=== PATIENT | male | born 1935 | race Caucasian/White ===

== ENCOUNTER 2017-09-24 06:46 | Outpatient (CLI) ==
[2015-02-05 13:39] VITALS: BMI 24.9
--- NOTE | 2017-09-24 10:28 | ECHO2D ---
Date of Exam: 09/24/17 Ordering Physician: DR. LEX MARTIN Room #: OP Reason for Echo: ATRIAL FIBRILLATION, CAD M-Mode Normal Adult Results LV Dimensions Normal Adult Results AoV Opening excursions >1.6 >1.6 LVEDD-base- 3.5-5.8 4.3 Ao root dimensions 2.0-3.7 3.3 LVESD-base- 3.1-4.6 L. Atrium dimensions 1.9-3.8 5.0 Post. Wall thickness 0.8-1.1 1.2 IV septum (thickness) 0.7-1.2 1.0 Post. Wall excursion 0.72-1.3 NORMAL Septal motion NORMAL Systolic motion R. Ventricular cavity 1.5-2.0 NORMAL LVEF 60% 56% Paradoxical septal wall motion NORMAL 2-D : 2-D M Mode Echocardiogram was performed using apical four chamber and left parasternal long and short axis views. Mitral, tricuspid and aortic valves appear to be normal. Contractility of the left ventricle seems to be normal, so is the cavity size. Enlarged Left atrial cavity size. Aortic roots appear to be normal. There is no pericardial effusion. There is no thrombus noted in the left ventricular or left aortic cavity. No mitral valve prolapse noted. M-MODE: MV: NORMAL AV: NORMAL TV: NORMAL PV: CHAMBER SIZE: ENLARGED LEFT ATRIAL CAVITY WALL MOTION: NORMAL PERICARDIUM: NORMAL INTERPRETATION: 1. BORDERLINE LEFT VENTRICULAR HYPERTROPHY WITH ENLARGED LEFT ATRIAL CAVITY (5.0 ) 2. NORMAL LEFT VENTRICULAR CONTRACTILITY 3. NORMAL VALVES MTDD
== END 2017-09-24 06:47 | disposition home or self-care (01) ==
LOC: CAR 06:46
PROVIDERS: ATTEND Internal Medicine
DX: I48.91 Unspecified atrial fibrillation (principal); I25.10 Atherosclerotic heart disease of native coronary artery without angina pectoris
CPT/HCPCS: 94761

== ENCOUNTER 2020-10-05 14:02 | Inpatient (IN) ==
[2020-10-05 15:34] LABS: BORDETELLA PARAPERTUSSIS (PCR) NOT DETECTED (NOT DETECT); BORDETELLA PERTUSSIS (PCR) NOT DETECTED (NOT DETECT); CHLAMYDIA PNEUMONIAE (PCR) NOT DETECTED (NOT DETECT); CORONAVIRUS 229E (PCR) NOT DETECTED (NOT DETECT); CORONAVIRUS HKU1 (PCR) NOT DETECTED (NOT DETECT); CORONAVIRUS NL63 (PCR) NOT DETECTED (NOT DETECT); CORONAVIRUS OC43 (PCR) NOT DETECTED (NOT DETECT); HUMAN METAPNEUMOVIRUS (PCR) NOT DETECTED (NOT DETECT); INFLUENZA B (PCR) NOT DETECTED (NOT DETECT); MYCOPLASMA PNEUMONIAE (PCR) NOT DETECTED (NOT DETECT); PARAINFLUENZA VIRUS 1 (PCR) NOT DETECTED (NOT DETECT); PARAINFLUENZA VIRUS 2 (PCR) NOT DETECTED (NOT DETECT); PARAINFLUENZA VIRUS 3 (PCR) NOT DETECTED (NOT DETECT); PARAINFLUENZA VIRUS 4 (PCR) NOT DETECTED (NOT DETECT); RESPIRATORY SYNCYTIAL V (PCR) NOT DETECTED (NOT DETECT); SARS_COV_2 (PCR) NOT DETECTED (NOT DETECT)
[2020-10-05 16:24] LABS: ADENOVIRUS (PCR) NOT DETECTED (NOT DETECT); HUMAN RHINOVIRUS/ENTEROV (PCR) DETECTED (NOT DETECT)
[2020-10-05] MEDS ORDERED: NITROSTAT SL PRN (17:00)
[2020-10-05] MEDS ORDERED: TYLENOL PO PRN (17:00)
[2020-10-05] MEDS ORDERED: ATROPINE SULFATE PFS IVP PRN (17:00)
[2020-10-05] MEDS ORDERED: DECADRON IM ONE (17:06)
[2020-10-05] MEDS ORDERED: LASIX IVP ONE (17:06)
[2020-10-05 17:07] VITALS: BMI 21.7
[2020-10-05 17:23] LABS: ABG O2 HGB 87.1 % (95-100); ABG PH 7.43 (7.35-7.45); COHb 3.9 (0.5-1.5); HCO3 17.3 (21-28); TCO2 18.1 (19-24); sO2 89.1 % (94-98); tHb 12.9 g/dl (11.7-17.4)
[2020-10-05 17:41] LABS: BASOPHILS # (AUTO) 0.1 K/uL (0-0.2); BASOPHILS % (AUTO) 0.5 % (0.0-3.0); EOSINOPHILS % (AUTO) 0.1 % (0.0-7.0); HEMATOCRIT 39.7 % (42.0-52.0); HEMOGLOBIN 13.5 g/dl (14.0-18.0); IMMATURE GRANULOCYTE # (AUTO) 0.4 (0.0-1.0); IMMATURE GRANULOCYTE % (AUTO) 3.9 % (0.0-5.0); LYMPHOCYTES # (AUTO) 1.7 K/uL (0.60-3.4); MEAN CORPUSCULAR HEMOGLOBIN 29.7 pg (27.0-31.0); MEAN CORPUSCULAR VOLUME 87.4 fl (80.0-94.0); MONOCYTES # (AUTO) 0.9 K/uL (0.4-2.0); MONOCYTES % (AUTO) 7.8 (0-10); NEUTROPHILS % (AUTO) 72.7 % (42.2-75.2); PLATELET COUNT 302 10^3/uL (140-440); RDW COEFFICIENT OF VARIATION 17.2 % (11.6-14.8); RED BLOOD COUNT 4.54 10^6/ul (4.70-6.10); WHITE BLOOD COUNT 10.99 K/ul (4.2-10.2)
[2020-10-05 17:52] LABS: ALANINE AMINOTRANSFERASE 12.3 U/L (0-50); ALBUMIN 3.21 g/dL (3.5-5.0); ALKALINE PHOSPHATASE 137.4 U/L (56-119); ASPARTATE AMINO TRANSFERASE 75.5 U/L (17-59); BILIRUBIN,TOTAL 0.7 mg/dL (0.2-1.3); BLOOD UREA NITROGEN 41.5 mg/dL (9-20); CALCIUM 9.27 mg/dL (8.4-10.2); CARBON DIOXIDE 21.7 mmol/L (22-30.0); CHLORIDE 98.3 mmol/L (98-107); CREATINE KINASE 149.4 U/L (55-170); CREATININE 2.27 mg/dL (0.60-1.10); GLUCOSE 128.3 mg/dL (74-106); POTASSIUM 4.06 mmol/L (3.5-5.1); SODIUM 135.4 mmol/L (134.5-145); TOTAL PROTEIN 6.27 g/dL (6.3-8.2)
[2020-10-05] MEDS ORDERED: DECADRON IVP ONE (17:54)
[2020-10-05 18:03] LABS: TROPONIN I 0.028 ng/ml (0.0000-0.120)
[2020-10-05 18:07] LABS: CREATINE KINASE MB 2.53 ng/ml (0.0-2.38)
[2020-10-05] MEDS: ROCEPHIN 1 GM/50 ML D5W 1 GM/50 ML BAG IV SCH (18:18)
[2020-10-05 18:19] LABS: BILIRUBIN,URINE 3+ (NEGATIVE); CLARITY,URINE Cloudy (CLEAR); COLOR,URINE Yellow (YELLOW); GLUCOSE, URINE (UA) Negative (NEGATIVE); KETONES,URINE Trace (NEGATIVE); LEUKOCYTE ESTERASE ,URINE Negative (NEGATIVE); NITRITE,URINE Negative (NEGATIVE); PROTEIN,URINE Negative (NEGATIVE); URINE, BLOOD Trace-intact (NEGATIVE)
[2020-10-05 18:24] LABS: MUCUS,URINE TRACE (NOT PRESENT); URINE WBC, MICROSCOPIC 0-2 (0-2)
[2020-10-05] MEDS ORDERED: NITRO DUR TD PRN (18:34)
--- NOTE | 2020-10-05 18:35 | DI ---
EXAM: AP single view of the chest. HISTORY: Shortness of breath. Cough. FINDINGS: The bones are unremarkable. The cardiac silhouette is incompletely visualized. The pulmon mahendra vasculature is within normal limits. The left costophrenic angle is clear. There is a mild to m oderate right pleural effusion. There is right basilar consolidation. Impression: Right basilar consolidation consistent with atelectasis and/or pneumonia. Mild to moderate right pleural effusion.
[2020-10-05] MEDS ORDERED: MORPHINE 2 MG/ML SYRINGE IVP STA (19:22)
[2020-10-05] MEDS: DUONEB NEB SCH ×2 (19:30→20:00)
[2020-10-05] MEDS: SOLU-CORTEF 250 MG IVP SCH ×2 (19:42→20:53)
[2020-10-05] MEDS: PRILOSEC PO SCH (20:22)
[2020-10-05] MEDS: ELIQUIS PO SCH (20:22)
[2020-10-06 01:22] LABS: ALANINE AMINOTRANSFERASE 9.9 U/L (0-50); ALBUMIN 2.99 g/dL (3.5-5.0); ALKALINE PHOSPHATASE 125.1 U/L (56-119); ASPARTATE AMINO TRANSFERASE 73.9 U/L (17-59); BILIRUBIN,TOTAL 0.52 mg/dL (0.2-1.3); BLOOD UREA NITROGEN 45.2 mg/dL (9-20); CALCIUM 9.1 mg/dL (8.4-10.2); CARBON DIOXIDE 20.7 mmol/L (22-30.0); CHLORIDE 97.1 mmol/L (98-107); CREATININE 2.44 mg/dL (0.60-1.10); GLUCOSE 145.7 mg/dL (74-106); POTASSIUM 4.23 mmol/L (3.5-5.1); TOTAL PROTEIN 5.74 g/dL (6.3-8.2)
[2020-10-06 01:33] LABS: TROPONIN I 0.041 ng/ml (0.0000-0.120)
[2020-10-06 01:34] LABS: HEMATOCRIT 36.9 % (42.0-52.0); HEMOGLOBIN 12.3 g/dl (14.0-18.0); MEAN CORPUSCULAR HEMOGLOBIN 29.3 pg (27.0-31.0); MEAN CORPUSCULAR HGB CONC 33.3 (31.8-35.4); MEAN CORPUSCULAR VOLUME 87.9 fl (80.0-94.0); RDW COEFFICIENT OF VARIATION 17.3 % (11.6-14.8); RED BLOOD COUNT 4.2 10^6/ul (4.70-6.10); WHITE BLOOD COUNT 10.84 K/ul (4.2-10.2)
[2020-10-06 01:39] LABS: CREATINE KINASE MB 2.52 ng/ml (0.0-2.38)
[2020-10-06] MEDS: DUONEB NEB SCH ×4 (04:35→19:25)
[2020-10-06] MEDS: PRILOSEC PO SCH ×2 (05:44→17:15)
[2020-10-06] MEDS: SOLU-CORTEF 250 MG IVP SCH ×4 (06:03→20:48)
[2020-10-06] MEDS ORDERED: LASIX IVP ONE (06:30)
[2020-10-06] MEDS: ROCEPHIN 1 GM/50 ML D5W 1 GM/50 ML BAG IV SCH (08:54)
[2020-10-06] MEDS: ZESTRIL PO SCH (08:54)
[2020-10-06] MEDS: CARDIZEM CD PO SCH (08:54)
[2020-10-06] MEDS: K-DUR PO SCH (08:54)
[2020-10-06] MEDS: CRESTOR PO SCH (08:54)
[2020-10-06] MEDS: DEXTROSE 5%-1/2NS IV SOLUTION 1,000 ML IV SCH (09:49)
[2020-10-06] MEDS: ELIQUIS PO SCH ×3 (09:51→20:32)
[2020-10-06] MEDS: CALMOSEPTINE OINTMENT TP SCH ×2 (12:31→20:30)
[2020-10-06] MEDS ORDERED: LANOXIN IVP ONE ×2 (12:56→17:00)
[2020-10-06] MEDS: MORPHINE 2 MG/ML SYRINGE IVP PRN (22:30)
[2020-10-07] MEDS: DUONEB NEB SCH ×4 (04:50→22:08)
[2020-10-07 04:56] LABS: HEMATOCRIT 36.3 % (42.0-52.0); MEAN CORPUSCULAR HEMOGLOBIN 29.1 pg (27.0-31.0); MEAN CORPUSCULAR HGB CONC 33.1 (31.8-35.4); MEAN CORPUSCULAR VOLUME 87.9 fl (80.0-94.0); RDW COEFFICIENT OF VARIATION 17.2 % (11.6-14.8); RED BLOOD COUNT 4.13 10^6/ul (4.70-6.10); WHITE BLOOD COUNT 14.49 K/ul (4.2-10.2)
[2020-10-07] MEDS: SOLU-CORTEF 250 MG IVP SCH ×3 (05:03→20:44)
[2020-10-07 05:09] LABS: ALANINE AMINOTRANSFERASE 9.7 U/L (0-50); ALBUMIN 2.88 g/dL (3.5-5.0); ALKALINE PHOSPHATASE 128.5 U/L (56-119); ASPARTATE AMINO TRANSFERASE 54.7 U/L (17-59); BILIRUBIN,TOTAL 0.35 mg/dL (0.2-1.3); BLOOD UREA NITROGEN 56.6 mg/dL (9-20); CALCIUM 8.77 mg/dL (8.4-10.2); CARBON DIOXIDE 26.4 mmol/L (22-30.0); CHLORIDE 100.1 mmol/L (98-107); CREATININE 2.19 mg/dL (0.60-1.10); GLUCOSE 193.5 mg/dL (74-106); POTASSIUM 4.25 mmol/L (3.5-5.1); SODIUM 133.6 mmol/L (134.5-145); TOTAL PROTEIN 5.63 g/dL (6.3-8.2)
[2020-10-07] MEDS: LASIX TAB PO SCH (05:50)
[2020-10-07] MEDS: PRILOSEC PO SCH ×2 (05:50→17:24)
[2020-10-07] MEDS: ZESTRIL PO SCH (09:09)
[2020-10-07] MEDS: ZITHROMAX PO SCH (09:09)
[2020-10-07] MEDS: CRESTOR PO SCH (09:09)
[2020-10-07] MEDS: CALMOSEPTINE OINTMENT TP SCH ×2 (09:09→20:16)
[2020-10-07] MEDS: CARDIZEM CD PO SCH (09:09)
[2020-10-07] MEDS: K-DUR PO SCH (09:09)
[2020-10-07] MEDS: ROCEPHIN 1 GM/50 ML D5W 1 GM/50 ML BAG IV SCH (09:10)
[2020-10-07] MEDS: ELIQUIS PO SCH ×2 (09:10→20:14)
--- NOTE | 2020-10-07 09:12 | PCM.PROG ---
Attending Provider: ATTENDING PROVIDER: Dr. LEX MARTIN This patient is seen with Rehana Garcia, Nurse Practitioner. DATE OF SERVICE: 10/07/20 SUBJECTIVE: This 85 year old /WHITE M was hospitalized 10/05/20. The patient is resting comfortably in bed. Not much urinary output. He is still very short of breath and coughing with thick sputum. Abdomen slightly distended, not complaining of pain. He is not eating much. REVIEW OF SYSTEMS: CONSTITUTIONAL: Weakness. No night sweats. No fatigue, malaise, lethargy. No fever or chills. HEENT: Eyes: No visual changes. No eye pain. No eye discharge. ENT: No runny nose. No epistaxis. No sinus pain. No odynophagia. No congestion. RESPIRATORY: Cough. No hemoptysis. Shortness of breath. CARDIOVASCULAR: No angina symptoms. No CHF symptoms. No atypical chest pain for CAD. No palpitations. No orthopnea.. GASTROINTESTINAL: Poor appetite. No abdominal pain. No nausea or vomiting. No diarrhea or constipation. No hematemesis. No hematochezia. GENITOURINARY: No urgency. No frequency. No dysuria. No hematuria. No obstructive symptoms. No discharge. No pain. No significant abnormal bleeding. MUSCULOSKELETAL: No musculoskeletal pain; no joint swelling. NEUROLOGICAL: Awake, alert, oriented to time, place and person. No headache. No neck pain. No syncope. No seizures. No dizziness. PSYCHIATRIC: Not anxious. No depression. No suicidal thoughts. No homicidal thoughts. SKIN: No rash. No lesions. No wounds. ENDOCRINE: No unexplained weight loss. No weight gain. HEMATOLOGIC/LYMPHATIC: No anemia. No purpura. No petechiae. No prolonged or excessive bleeding. No palpable lymph nodes. PHYSICAL EXAMINATION: GENERAL: The patient is awake, alert and oriented, lying/sitting in bed in no distress. VITAL SIGNS: Temperature 97.0 F, Pulse 88, Respiratory Rate 18, BP 104/61, Pulse Ox 91% HEENT: Head normocephalic, atraumatic. Eyes: Extraocular muscles are intact. Pupils are equal, round and reactive to light and accommodation. Ears: No lesions. Nose appeared normal. Throat: No exudate or erythema. NECK: Supple. No JVD, no carotid bruit. No lymphadenopathy or thyromegaly. LUNGS: Diminished breath sounds. Clear to auscultation. Percussion note normal. Chest symmetrical. HEART: S1, S2, no S3. No murmurs. No cyanosis or clubbing. No ascites. Pulses: Dorsalis pedis and posterior tibial pulses +1 to +2 both sides. ABDOMEN: Soft. Non-tender. Bowel sounds active. Slight abdominal tenderness. No CVA tenderness. No mass felt. EXTREMITIES: No edema. Full range of motion of all extremities, equal. NEUROLOGIC: No focal deficit. Cranial nerves II through XII are grossly intact. No headache. No double vision. SKIN: Not dry. Intact. Turgor-normal. LYMPHATIC: No palpable lymph nodes/no lymphedema. MUSCULOSKELETAL: Normal joints with no swelling. Muscle tone is normal. LAB REVIEW: 10/07/20 04:45 10/07/20 04:45 10/07/20 04:45: Sodium 133.6 L, Potassium 4.25, Chloride 100.1, Carbon Dioxide 26.4, Anion Gap 11.35, BUN 56.6 H, Creatinine 2.19 H, Estimated GFR (MDRD) 29.00, BUN/Creatinine Ratio 25.84, Glucose 193.5 H, Calcium 8.77, Total Bilirubin 0.35, AST 54.7, ALT 9.7, Alkaline Phosphatase 128.5 H, Total Protein 5.63 L, Albumin 2.88 L, Globulin 2.75, Albumin/Globulin Ratio 1.04 10/07/20 04:45: WBC 14.49 H, RBC 4.13 L, Hgb 12.0 L, Hct 36.3 L, MCV 87.9, MCH 29.1, MCHC 33.1, RDW Coeff of [place] 17.2 H, Plt Count 268 ASSESSMENT: Please see below. 1. Right basilar pneumonia. 2. CHF. 3. Renal azotemia. 4. Underlying COPD. PLAN: 1. CT scan of abdomen without contrast. 2. CT scan of chest without contrast. 3. Zithromax 500 mg p.o. daily for three days. 4. Pulmicort 1 mg nebulizer b.i.d. Plan and coordination of the patient's care discussed in the presence of Php Website Developer and nurse. CONDITION: Stable SCRIBED BY: Mana DECKER scribed while in presence of service performed by Dr. Martin/Rehana Garcia APRN on 10/07/20 ([id number])
--- NOTE | 2020-10-07 10:33 | HP ---
DATE OF SERVICE: 10/05/2020 REASON FOR HOSPITALIZATION/HISTORY OF PRESENT ILLNESS: The patient is unable to walk, not eating and more and more shortness of breath with coughing. PAST MEDICAL HISTORY/PAST SURGICAL HISTORY: Atrial fibrillation on Eliquis CAD History of aortofemoral bypass Diabetes Mellitus type II Hypertension Dyslipidemia Mets Syndrome Cervical radiculopathy Hyperglycemia PAD Right knee osteoarthritis Left shoulder osteoarthritis Chronic bronchitis History of pulmonary hypertensin History of cholecystectomy Right biliary stone 07/28 REVIEW OF SYSTEMS: CONSTITUTIONAL: No fever, Fatigue. HEENT: No sinus drainage, no sore throat. RESPIRATORY: No cough, no congestion. CARDIOVASCULAR: No atypical chest pain for coronary artery disease. No angina, CHF symptoms, palpitations. Shortness of breath. GASTROINTESTINAL: No melena or abdominal pain. No GERD. GENITOURINARY: No hematuria, no prostatism, no polyuria. ROLL UP GUIDER OPERATOR: No blackout, no dizziness, no headache, no double vision. GAIT: Wheelchair. MUSCULOSKELETAL: Osteoarthritis pain, no joint swelling. ENDOCRINE: No weight loss, no weight gain. Unable. SKIN: Not dry, no rash. PSYCHIATRIC: Not anxious, no depression, no suicidal thoughts, no homicidal thoughts. SOCIAL HISTORY: Marital Status: . Alcohol Usage: No. Tobacco Usage: No. FAMILY HISTORY: Father Mother Brother 1 alive Sister 4-3 and one alive. MEDICATIONS: Eliquis 5mg BID Crestor 10mg daily Omeprazole 20mg BID Lisinopril 40mg daily Diltiazem 240mg PO daily Nitroglycerin patch 0.2mg O2 Lasix 40mg daily Potassium 20meq daily Breztri ALLERGIES: Celebrex don't work PHYSICAL EXAMINATION: V/S: Pulse 80, blood pressure 108/68, temperature 97.9, oxygen saturation 90%. GENERAL APPEARANCE: Oriented times three. HEENT: Normal. NECK: No JVP, no bruits. RESPIRATORY: Visible short of breath, retraction intercostal. Decreased breath sounds, bilateral crepitations. CARDIOVASCULAR: S1, S2, no S3, no murmur. Irregular. No cyanosis, clubbing. No ascites. GI/ABDOMEN: No tenderness. Bowel sounds are active. EXTREMITIES: +2 bilateral lower extremity edema, pulses +1, equal. ROLL UP GUIDER OPERATOR: Deep tendon reflexes, sensory, motor and gait all normal. RECTAL: The patient refused./PROSTATE:03/25(0.3). ASSESSMENT: 1. Shortness of breath 2. Leg edema 3. Acute CHF 4. COPD 5. Atrial fibrillation on Eliquis 6. CAD 7. History of aortofemoral bypass 8. Diabetes Mellitus type II 9. 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 Routine telemetry orders 2. CBC and CMP now and daily 3. ABG on 2 liters now 4. NT PRO BNP now (11,000) 5. Continue home medications 6. Chest x-ray 7. U/A 8. Lasix 40mg IV daily times 2 days 9. Hold PO Lasix 10.Daily weight 11.Measure I&O 12.4mg Decadron IM times one 13.DNR 14.O2 @ 1-2 liters nasal canula 14.Low sale diet( Cardiac) 15.Elevate legs 16.Rocephin 1 gram IV daily TIME SPENT: More than 70 minutes. MTDD
[2020-10-07] MEDS ORDERED: TUSSIONEX PO PRN (12:06)
[2020-10-07] MEDS: TUSSIONEX PO PRN (12:54)
[2020-10-07] MEDS: MORPHINE 2 MG/ML SYRINGE IVP PRN ×2 (15:52→23:19)
[2020-10-07] MEDS: PULMICORT 1 MG/2 ML NEB SCH (22:08)
[2020-10-08] MEDS: TUSSIONEX PO PRN (00:45)
[2020-10-08] MEDS: DUONEB NEB SCH ×4 (04:45→19:45)
[2020-10-08] MEDS: PULMICORT 1 MG/2 ML NEB SCH ×2 (04:45→19:45)
[2020-10-08] MEDS: SOLU-CORTEF 250 MG IVP SCH ×3 (05:16→21:57)
[2020-10-08 05:23] LABS: BASOPHILS % (AUTO) 0.3 % (0.0-3.0); EOSINOPHILS % (AUTO) 0.1 % (0.0-7.0); HEMATOCRIT 38.4 % (42.0-52.0); HEMOGLOBIN 12.9 g/dl (14.0-18.0); IMMATURE GRANULOCYTE # (AUTO) 0.4 (0.0-1.0); IMMATURE GRANULOCYTE % (AUTO) 2.9 % (0.0-5.0); LYMPHOCYTES # (AUTO) 0.9 K/uL (0.60-3.4); LYMPHOCYTES % (AUTO) 5.9 (10.0-50.0); MEAN CORPUSCULAR HEMOGLOBIN 29.7 pg (27.0-31.0); MEAN CORPUSCULAR HGB CONC 33.6 (31.8-35.4); MEAN CORPUSCULAR VOLUME 88.5 fl (80.0-94.0); MONOCYTES # (AUTO) 0.6 K/uL (0.4-2.0); MONOCYTES % (AUTO) 4.4 (0-10); NEUTROPHILS # (AUTO) 12.7 K/ul (2.0-6.9); NEUTROPHILS % (AUTO) 86.4 % (42.2-75.2); PLATELET COUNT 288 10^3/uL (140-440); RDW COEFFICIENT OF VARIATION 17.5 % (11.6-14.8); RED BLOOD COUNT 4.34 10^6/ul (4.70-6.10); WHITE BLOOD COUNT 14.67 K/ul (4.2-10.2)
[2020-10-08 05:33] LABS: ALANINE AMINOTRANSFERASE 15.3 U/L (0-50); ALBUMIN 3.09 g/dL (3.5-5.0); ALKALINE PHOSPHATASE 137.6 U/L (56-119); ASPARTATE AMINO TRANSFERASE 72.1 U/L (17-59); BILIRUBIN,TOTAL 0.42 mg/dL (0.2-1.3); BLOOD UREA NITROGEN 59.1 mg/dL (9-20); CALCIUM 9.05 mg/dL (8.4-10.2); CARBON DIOXIDE 28.5 mmol/L (22-30.0); CHLORIDE 101.7 mmol/L (98-107); CREATININE 1.94 mg/dL (0.60-1.10); GLUCOSE 165.2 mg/dL (74-106); POTASSIUM 4.49 mmol/L (3.5-5.1); SODIUM 135.7 mmol/L (134.5-145); TOTAL PROTEIN 6.02 g/dL (6.3-8.2)
[2020-10-08] MEDS: LASIX TAB PO SCH (05:39)
[2020-10-08] MEDS: PRILOSEC PO SCH ×2 (05:39→17:00)
[2020-10-08] MEDS: PHENERGAN WITH CODEINE 6.25/10 MG/5 ML PO SCH ×3 (09:27→21:57)
[2020-10-08] MEDS: ZITHROMAX PO SCH (10:15)
[2020-10-08] MEDS: CARDIZEM CD PO SCH (10:15)
[2020-10-08] MEDS: ZESTRIL PO SCH (10:15)
[2020-10-08] MEDS: K-DUR PO SCH (10:16)
[2020-10-08] MEDS: ROCEPHIN 1 GM/50 ML D5W 1 GM/50 ML BAG IV SCH (10:16)
[2020-10-08] MEDS: CRESTOR PO SCH (10:16)
[2020-10-08] MEDS: CALMOSEPTINE OINTMENT TP SCH ×2 (10:19→20:43)
[2020-10-08] MEDS: ELIQUIS PO SCH ×2 (10:25→20:17)
--- NOTE | 2020-10-08 10:43 | PN ---
DATE OF SERVICE: 10/06/2020 SUBJECTIVE: 85 year old white male hospitalized with shortness, COPD exacerbation and possibility of CHF. The patient's main problem seems to be acute bronchitis with COPD exacerbation. REVIEW OF SYSTEMS: CONSTITUTIONAL: No night sweats. No fatigue, malaise, lethargy. No fever or chills. HEENT: Eyes: No visual changes. No eye pain. No eye discharge. ENT: No runny nose. No epistaxis. No sinus pain. No sore throat. No odynophagia. No congestion. RESPIRATORY: Mild cough with congestion. No hemoptysis. Shortness of breath. CARDIOVASCULAR: No angina symptoms. No CHF symptoms. No atypical chest pain for CAD. No palpitations. No PND. No orthopnea. GASTROINTESTINAL: No abdominal pain. No nausea or vomiting. No diarrhea or constipation. No hematemesis. No hematochezia. Appetite seems to be improving some. GENITOURINARY: No urgency. No frequency. No dysuria. No hematuria. No obstructive symptoms. No discharge. No pain. No significant abnormal bleeding. MUSCULOSKELETAL: No musculoskeletal pain; no joint swelling. NEUROLOGICAL: No headache. No neck pain. No syncope. No seizures. No dizziness. PSYCHIATRIC: Not anxious. No depression. No suicidal thoughts. No homicidal thoughts. SKIN: No rash. No lesions. No wounds. ENDOCRINE: No unexplained weight loss. No weight gain. HEMATOLOGIC/LYMPHATIC: No anemia. No purpura. No petechiae. No prolonged or excessive bleeding. No palpable lymph nodes. PHYSICAL EXAMINATION: VITAL SIGNS: Temperature 97.5, pulse 120 irregular, respiratory rate 20, blood pressure 115/82 and pulse 91% with 4 liters. HEENT: Head normocephalic, atraumatic. Eyes: Extraocular muscles are intact. Pupils are equal, round and reactive to light and accommodation. Ears: No lesions. Nose appeared normal. Throat: No exudate or erythema. NECK: Supple. No JVD, no carotid bruit. No lymphadenopathy or thyromegaly. LUNGS: Decreased breath sounds better air entry than yesterday. Clear to auscultation. Percussion note normal. Chest symmetrical. HEART: S1, S2, no S3. No murmurs. Irregular rate, 110 per minute apical. No cyanosis or clubbing. No ascites. Pulses: Dorsalis pedis and posterior tibial pulses +1 to +2 bilaterally. ABDOMEN: Soft. Nontender. Bowel sounds active. No CVA tenderness. No mass felt. EXTREMITIES: No edema. Full range of motion of all extremities, equal. NEUROLOGIC: No focal deficit. Cranial nerves II through XII are grossly intact. No headache. No double vision. SKIN: Not dry. Intact. Turgor - normal. LYMPHATIC: No palpable lymph nodes/no lymphedema. MUSCULOSKELETAL: Normal joints with no swelling. Muscle tone is normal. LABS: Hgb 12.3, hct 36, WBC 10,000 normal differential, creatinine 2.4, BUN 45, potassium 4.2. The patient had an echo done which showed markedly enlarged RV cavity with normal LV contractility with possibility of paradoxical septal wall motion. ASSESSMENT: 1. Acute respiratory failure 2. Acute bronchitis with COPD 3. History of CHF 4. Cor Pulmonale 5. Renal failure with 20cc per minute GFR PLAN: 1. Continue steroids, NEBS and Antibiotics 2. We will cut down on Lasix to 20mg PO at QAM 3. Slow IV fluids 50cc per hour 4. Encourage the patient to eat 5. The patient is also on DUO NEBS QID 6. Slowly hydrate the patient so that not to overload the cardiovascular system. CONDITION: Improved some with Morphine, Steroids, Antibiotics and NEBS PROGNOSIS: Guarded TIME SPENT: More than 30 minutes. Plan and coordination of the patient's care discussed in the presence of nurse. LILIYA
--- NOTE | 2020-10-08 10:47 | PCM.PROG ---
Attending Provider: ATTENDING PROVIDER: Dr. LEX MARTIN DATE OF SERVICE: 10/08/20 SUBJECTIVE: This 85 year old /WHITE M was hospitalized 10/05/20 with respiratory failure. The patient had mostly acute bronchitis with cor pulmonale. I don't think there was any component of left ventricular failure. Ejection fraction practically normal. Enlarged right ventricle cavity. Leg edema resolved. Kidney function improved. He has kidney failure. The patient has good oral intake so IV fluids discontinued. The patient still has cough and congestion with difficulty handling sputum. REVIEW OF SYSTEMS: CONSTITUTIONAL: No night sweats. No fatigue, malaise, lethargy. No fever or chills. HEENT: Eyes: No visual changes. No eye pain. No eye discharge. ENT: No runny nose. No epistaxis. No sinus pain. No odynophagia. No congestion. RESPIRATORY: Cough and congestion with shortness of breath on minimal exertion. No hemoptysis. CARDIOVASCULAR: No angina symptoms. No CHF symptoms. No atypical chest pain for CAD. No palpitations. No orthopnea.. GASTROINTESTINAL: No abdominal pain. No nausea or vomiting. No diarrhea or constipation. No hematemesis. No hematochezia. GENITOURINARY: No urgency. No frequency. No dysuria. No hematuria. No obstructive symptoms. No discharge. No pain. No significant abnormal bleeding. MUSCULOSKELETAL: No musculoskeletal pain; no joint swelling. NEUROLOGICAL: Awake, alert, oriented to time, place and person. No headache. No neck pain. No syncope. No seizures. No dizziness. PSYCHIATRIC: Not anxious. No depression. No suicidal thoughts. No homicidal thoughts. SKIN: No rash. No lesions. No wounds. ENDOCRINE: No unexplained weight loss. No weight gain. HEMATOLOGIC/LYMPHATIC: No anemia. No purpura. No petechiae. No prolonged or excessive bleeding. No palpable lymph nodes. PHYSICAL EXAMINATION: GENERAL: The patient is awake, alert and oriented, lying/sitting in bed in mild distress due to shortness of air with frequent cough. VITAL SIGNS: Temperature 97.3 F, Pulse 100, Respiratory Rate 25, BP 126/72, Oxygen saturation 88 to 90% on 4 to 5L. HEENT: Head normocephalic, atraumatic. Eyes: Extraocular muscles are intact. Pupils are equal, round and reactive to light and accommodation. Ears: No lesions. Nose appeared normal. Throat: No exudate or erythema. NECK: Supple. No JVD, no carotid bruit. No lymphadenopathy or thyromegaly. LUNGS: Bilateral expiratory wheeze. Percussion note normal. Chest symmetrical. HEART: S1, S2, no S3. No murmurs. No cyanosis or clubbing. No ascites. Pulses: Dorsalis pedis and posterior tibial pulses +1 to +2 both sides. ABDOMEN: Soft. Non-tender. Bowel sounds active. No CVA tenderness. No mass felt. EXTREMITIES: No edema. Full range of motion of all extremities, equal. NEUROLOGIC: No focal deficit. Cranial nerves II through XII are grossly intact. No headache, no double vision or headache. SKIN: Warm and dry. Intact. Turgor-normal. LYMPHATIC: No palpable lymph nodes/no lymphedema. MUSCULOSKELETAL: Normal joints with no swelling. Muscle tone is normal. LAB REVIEW: 10/08/20 05:09 10/08/20 05:09 10/08/20 05:09: Sodium 135.7, Potassium 4.49, Chloride 101.7, Carbon Dioxide 28.5, Anion Gap 9.99, BUN 59.1 H, Creatinine 1.94 H, Estimated GFR (MDRD) 33.00, BUN/Creatinine Ratio 30.46, Glucose 165.2 H, Calcium 9.05, Total Bilirubin 0.42, AST 72.1 H, ALT 15.3, Alkaline Phosphatase 137.6 H, Total Protein 6.02 L, Albumin 3.09 L, Globulin 2.93, Albumin/Globulin Ratio 1.05 10/08/20 05:09: WBC 14.67 H, RBC 4.34 L, Hgb 12.9 L, Hct 38.4 L, MCV 88.5, MCH 29.7, MCHC 33.6, RDW Coeff of [place] 17.5 H, Plt Count 288, Immature Gran % (Auto) 2.9, Neut % (Auto) 86.4 H, Lymph % (Auto) 5.9 L, [place] % (Auto) 4.4, Eos % (Auto) 0.1, Baso % (Auto) 0.3, Neut # (Auto) 12.7 H, Lymph # (Auto) 0.9, [place] # (Auto) 0.6, Eos # (Auto) 0.0, Baso # (Auto) 0.0, Immature Gran # (Auto) 0.4 ASSESSMENT: Please see below. 1. Acute bronchitis with severe chronic lung disease/cor pulmonale. 2. History of coronary artery disease. 3. Chronic kidney disease, Stage 4. 4. Diabetes mellitus. PLAN: 1. Continue steroids, nebs and antribiotics. Plan and coordination of the patient's care discussed in the presence of Senior Clinical Study Manager and nurse. CONDITION: Stable. PROGNOSIS: Poor. SCRIBED BY: MELCHOR JETER Director Of Corporate Marketing scribed while in presence of service performed by Dr. LEX MARTIN on 10/08/20 ([id number])
[2020-10-08] MEDS: MORPHINE 2 MG/ML SYRINGE IVP PRN ×2 (10:54→23:06)
--- NOTE | 2020-10-08 13:12 | ECHO2D ---
Date of Exam: 10/06/2020 Ordering Physician: DR. LEX MARTIN Room #: [id number] Reason for Echo: RESPIRATORY FAILURE, HX CABG, COPD M-Mode Normal Adult Results LV Dimensions Normal Adult Results AoV Opening excursions >1.6 >1.6 LVEDD-base- 3.5-5.8 4.1 Ao root dimensions 2.0-3.7 3.2 LVESD-base- 3.1-4.6 L. Atrium dimensions 1.9-3.8 4.5 Post. Wall thickness 0.8-1.1 1.0 IV septum (thickness) 0.7-1.2 1.0 Post. Wall excursion 0.72-1.3 NORMAL Septal motion NORMAL Systolic motion R. Ventricular cavity 1.5-2.0 4.5 LVEF 60% 69% Paradoxical septal wall motion NORMAL 2-D : ENLARGED LEFT ATRIAL AND RIGHT VENTRICLE CAVITIES--NORMAL LEFT VENTRICLE CONTRACTILITY-NORMAL VALVES--NO EFFUSION, NO THROMBUS M-MODE: MV: NORMAL AV: NORMAL TV: NORMAL PV: CHAMBER SIZE: ENLARGED RIGHT VENTRICLE AND LEFT ATRIAL CAVITIES WALL MOTION: NORMAL PERICARDIUM: NORMAL INTERPRETATION: 1. ENLARGED RIGHT VENTRICLE AND LEFT ATRIAL CAVITIES 2. NORMAL LEFT VENTRICLE CONTRACTILITY MTDD
[2020-10-08] MEDS: DEXTROSE 5%-1/2NS IV SOLUTION 1,000 ML IV SCH (18:46)
[2020-10-09] MEDS: MORPHINE 2 MG/ML SYRINGE IVP PRN ×6 (03:52→22:49)
[2020-10-09] MEDS: DUONEB NEB SCH ×4 (05:20→20:10)
[2020-10-09] MEDS: PULMICORT 1 MG/2 ML NEB SCH ×2 (05:20→20:10)
[2020-10-09 05:22] LABS: ALANINE AMINOTRANSFERASE 20.3 U/L (0-50); ALBUMIN 3.1 g/dL (3.5-5.0); ALKALINE PHOSPHATASE 143.5 U/L (56-119); ASPARTATE AMINO TRANSFERASE 143.7 U/L (17-59); BILIRUBIN,TOTAL 0.45 mg/dL (0.2-1.3); BLOOD UREA NITROGEN 56.8 mg/dL (9-20); CALCIUM 9.18 mg/dL (8.4-10.2); CARBON DIOXIDE 27.8 mmol/L (22-30.0); CHLORIDE 103.7 mmol/L (98-107); CREATININE 1.94 mg/dL (0.60-1.10); GLUCOSE 149.2 mg/dL (74-106); POTASSIUM 5.14 mmol/L (3.5-5.1); SODIUM 137.4 mmol/L (134.5-145)
[2020-10-09 05:44] LABS: HEMATOCRIT 39.4 % (42.0-52.0); HEMOGLOBIN 12.9 g/dl (14.0-18.0); MEAN CORPUSCULAR HEMOGLOBIN 29.3 pg (27.0-31.0); MEAN CORPUSCULAR HGB CONC 32.7 (31.8-35.4); MEAN CORPUSCULAR VOLUME 89.5 fl (80.0-94.0); PLATELET COUNT 287 10^3/uL (140-440); RDW COEFFICIENT OF VARIATION 17.6 % (11.6-14.8); WHITE BLOOD COUNT 14.97 K/ul (4.2-10.2)
[2020-10-09 05:48] LABS: ANISOCYTOSIS NOT PRESENT (NOT PRESENT)
[2020-10-09] MEDS: PRILOSEC PO SCH ×2 (05:52→18:35)
[2020-10-09] MEDS: LASIX TAB PO SCH (05:53)
[2020-10-09] MEDS: PHENERGAN WITH CODEINE 6.25/10 MG/5 ML PO SCH ×3 (05:57→21:48)
[2020-10-09] MEDS: SOLU-CORTEF 250 MG IVP SCH ×3 (05:58→22:48)
[2020-10-09] MEDS: ZITHROMAX PO SCH (08:56)
[2020-10-09] MEDS: CARDIZEM CD PO SCH (08:56)
[2020-10-09] MEDS: ROCEPHIN 1 GM/50 ML D5W 1 GM/50 ML BAG IV SCH (08:56)
[2020-10-09] MEDS: CRESTOR PO SCH (08:57)
[2020-10-09] MEDS: K-DUR PO SCH (08:57)
[2020-10-09] MEDS: ZESTRIL PO SCH (08:57)
[2020-10-09] MEDS: CALMOSEPTINE OINTMENT TP SCH ×2 (08:59→20:39)
[2020-10-09] MEDS: ELIQUIS PO SCH ×2 (08:59→20:32)
[2020-10-10] MEDS: MORPHINE 2 MG/ML SYRINGE IVP PRN ×7 (01:29→20:52)
[2020-10-10] MEDS: TRANSDERM-SCOP 1.5 MG PATCH TD SCH (01:45)
[2020-10-10] MEDS: PHENERGAN WITH CODEINE 6.25/10 MG/5 ML PO SCH ×4 (03:27→21:26)
[2020-10-10] MEDS: DUONEB NEB SCH ×4 (04:15→21:00)
[2020-10-10] MEDS: PULMICORT 1 MG/2 ML NEB SCH ×2 (04:15→21:00)
[2020-10-10] MEDS: LASIX TAB PO SCH (06:01)
[2020-10-10] MEDS: PRILOSEC PO SCH ×2 (06:01→17:15)
[2020-10-10] MEDS: SOLU-CORTEF 250 MG IVP SCH ×3 (06:31→21:48)
[2020-10-10] MEDS: CALMOSEPTINE OINTMENT TP SCH ×2 (09:00→21:53)
[2020-10-10] MEDS: ROCEPHIN 1 GM/50 ML D5W 1 GM/50 ML BAG IV SCH (09:10)
[2020-10-10] MEDS: K-DUR PO SCH (10:41)
[2020-10-10] MEDS: CARDIZEM CD PO SCH (11:03)
[2020-10-10] MEDS: CRESTOR PO SCH (11:04)
[2020-10-10 12:15] LABS: BASOPHILS # (AUTO) 0.1 K/uL (0-0.2); BASOPHILS % (AUTO) 0.5 % (0.0-3.0); HEMATOCRIT 40.2 % (42.0-52.0); HEMOGLOBIN 12.9 g/dl (14.0-18.0); IMMATURE GRANULOCYTE % (AUTO) 6.8 % (0.0-5.0); LYMPHOCYTES # (AUTO) 0.8 K/uL (0.60-3.4); LYMPHOCYTES % (AUTO) 5.1 (10.0-50.0); MEAN CORPUSCULAR HEMOGLOBIN 29.4 pg (27.0-31.0); MEAN CORPUSCULAR HGB CONC 32.1 (31.8-35.4); MEAN CORPUSCULAR VOLUME 91.6 fl (80.0-94.0); MONOCYTES # (AUTO) 0.9 K/uL (0.4-2.0); MONOCYTES % (AUTO) 6.1 (0-10); NEUTROPHILS # (AUTO) 11.9 K/ul (2.0-6.9); NEUTROPHILS % (AUTO) 81.5 % (42.2-75.2); PLATELET COUNT 235 10^3/uL (140-440); RDW COEFFICIENT OF VARIATION 17.8 % (11.6-14.8); RED BLOOD COUNT 4.39 10^6/ul (4.70-6.10); WHITE BLOOD COUNT 14.59 K/ul (4.2-10.2)
[2020-10-10] MEDS ORDERED: LASIX IVP ONE (12:25)
[2020-10-10 12:27] LABS: ALANINE AMINOTRANSFERASE 23.2 U/L (0-50); ALBUMIN 3.14 g/dL (3.5-5.0); ALKALINE PHOSPHATASE 176.2 U/L (56-119); ASPARTATE AMINO TRANSFERASE 217.4 U/L (17-59); BILIRUBIN,TOTAL 0.43 mg/dL (0.2-1.3); BLOOD UREA NITROGEN 58.2 mg/dL (9-20); CALCIUM 9.42 mg/dL (8.4-10.2); CARBON DIOXIDE 31.9 mmol/L (22-30.0); CREATININE 1.79 mg/dL (0.60-1.10); GLUCOSE 158.2 mg/dL (74-106); POTASSIUM 5.26 mmol/L (3.5-5.1); SODIUM 141.2 mmol/L (134.5-145); TOTAL PROTEIN 6.03 g/dL (6.3-8.2)
[2020-10-10] MEDS ORDERED: LASIX ONE (12:36)
[2020-10-10] MEDS: ELIQUIS PO SCH ×2 (14:28→21:26)
[2020-10-10] MEDS: ZESTRIL PO SCH (16:09)
[2020-10-11] MEDS: MORPHINE 2 MG/ML SYRINGE IVP PRN ×6 (03:38→23:00)
[2020-10-11] MEDS: DUONEB NEB SCH ×3 (04:25→14:07)
[2020-10-11] MEDS: PULMICORT 1 MG/2 ML NEB SCH (04:25)
[2020-10-11 05:19] LABS: HEMATOCRIT 41.5 % (42.0-52.0); HEMOGLOBIN 13.4 g/dl (14.0-18.0); MEAN CORPUSCULAR HEMOGLOBIN 29.7 pg (27.0-31.0); MEAN CORPUSCULAR HGB CONC 32.3 (31.8-35.4); PLATELET COUNT 221 10^3/uL (140-440); RDW COEFFICIENT OF VARIATION 17.9 % (11.6-14.8); RED BLOOD COUNT 4.51 10^6/ul (4.70-6.10)
[2020-10-11 05:30] LABS: ANISOCYTOSIS NOT PRESENT (NOT PRESENT)
[2020-10-11 05:35] LABS: ALANINE AMINOTRANSFERASE 23.5 U/L (0-50); ALBUMIN 3.07 g/dL (3.5-5.0); ALKALINE PHOSPHATASE 169.7 U/L (56-119); BILIRUBIN,TOTAL 0.48 mg/dL (0.2-1.3); CALCIUM 9.48 mg/dL (8.4-10.2); CHLORIDE 107.6 mmol/L (98-107); CREATININE 1.56 mg/dL (0.60-1.10); GLUCOSE 164.8 mg/dL (74-106); POTASSIUM 5.16 mmol/L (3.5-5.1); TOTAL PROTEIN 5.77 g/dL (6.3-8.2)
[2020-10-11] MEDS: SOLU-CORTEF 250 MG IVP SCH ×3 (05:35→20:44)
[2020-10-11 05:47] LABS: BLOOD UREA NITROGEN 64.8 mg/dL (9-20)
[2020-10-11] MEDS: LASIX TAB PO SCH (06:05)
[2020-10-11] MEDS: PHENERGAN WITH CODEINE 6.25/10 MG/5 ML PO SCH ×4 (06:39→23:10)
[2020-10-11] MEDS: PRILOSEC PO SCH ×2 (06:39→16:58)
[2020-10-11] MEDS: TRANSDERM-SCOP 1.5 MG PATCH TD SCH (08:05)
[2020-10-11] MEDS: ELIQUIS PO SCH ×2 (08:39→23:10)
[2020-10-11] MEDS: K-DUR PO SCH (08:40)
[2020-10-11] MEDS: ZESTRIL PO SCH (08:40)
[2020-10-11] MEDS: CARDIZEM CD PO SCH (08:40)
[2020-10-11] MEDS: CRESTOR PO SCH (08:41)
[2020-10-11] MEDS: ROCEPHIN 1 GM/50 ML D5W 1 GM/50 ML BAG IV SCH (08:42)
[2020-10-11] MEDS: CALMOSEPTINE OINTMENT TP SCH ×2 (08:51→23:10)
[2020-10-11] MEDS ORDERED: ATIVAN IVP PRN (11:43)
[2020-10-11] MEDS ORDERED: MORPHINE 2 MG/ML SYRINGE IVP PRN (11:44)
[2020-10-11] MEDS ORDERED: ATIVAN 1 ML ONE (11:46)
[2020-10-11] MEDS ORDERED: MORPHINE 2 MG/ML SYRINGE ONE (11:46)
[2020-10-11] MEDS: ATIVAN IVP PRN ×4 (13:51→23:00)
[2020-10-12] MEDS: SOLU-CORTEF 250 MG IVP SCH ×3 (04:57→22:00)
[2020-10-12] MEDS: PHENERGAN WITH CODEINE 6.25/10 MG/5 ML PO SCH ×3 (04:58→14:05)
[2020-10-12 05:17] LABS: HEMATOCRIT 40.7 % (42.0-52.0); HEMOGLOBIN 13.1 g/dl (14.0-18.0); MEAN CORPUSCULAR HEMOGLOBIN 29.6 pg (27.0-31.0); MEAN CORPUSCULAR HGB CONC 32.2 (31.8-35.4); MEAN CORPUSCULAR VOLUME 91.9 fl (80.0-94.0); PLATELET COUNT 208 10^3/uL (140-440); RDW COEFFICIENT OF VARIATION 17.8 % (11.6-14.8); RED BLOOD COUNT 4.43 10^6/ul (4.70-6.10); WHITE BLOOD COUNT 16.14 K/ul (4.2-10.2)
[2020-10-12 05:34] LABS: ALANINE AMINOTRANSFERASE 29.1 U/L (0-50); ALBUMIN 3.04 g/dL (3.5-5.0); ALKALINE PHOSPHATASE 163.6 U/L (56-119); ASPARTATE AMINO TRANSFERASE 141.7 U/L (17-59); BILIRUBIN,TOTAL 0.43 mg/dL (0.2-1.3); CALCIUM 9.42 mg/dL (8.4-10.2); CARBON DIOXIDE 29.8 mmol/L (22-30.0); CHLORIDE 109.8 mmol/L (98-107); CREATININE 2.06 mg/dL (0.60-1.10); GLUCOSE 164.2 mg/dL (74-106); POTASSIUM 5.14 mmol/L (3.5-5.1); SODIUM 144.3 mmol/L (134.5-145); TOTAL PROTEIN 5.7 g/dL (6.3-8.2)
[2020-10-12 05:39] LABS: ANISOCYTOSIS NOT PRESENT (NOT PRESENT)
[2020-10-12] MEDS: ATIVAN IVP PRN ×6 (05:46→22:31)
[2020-10-12] MEDS: MORPHINE 2 MG/ML SYRINGE IVP PRN ×6 (05:46→22:51)
[2020-10-12] MEDS: LASIX TAB PO SCH (05:56)
[2020-10-12] MEDS: PRILOSEC PO SCH (05:57)
[2020-10-12] MEDS: PULMICORT 1 MG/2 ML NEB SCH ×2 (06:27→06:29)
[2020-10-12] MEDS: CRESTOR PO SCH (09:06)
[2020-10-12] MEDS: CARDIZEM CD PO SCH (09:06)
[2020-10-12] MEDS: ELIQUIS PO SCH (09:08)
[2020-10-12] MEDS: ZESTRIL PO SCH (09:09)
[2020-10-12] MEDS: K-DUR PO SCH (09:09)
--- NOTE | 2020-10-12 09:30 | PCM.PROG ---
Attending Provider: ATTENDING PROVIDER: Dr. LEX MARTIN This patient is seen with Rehana Garcia, Nurse Practitioner. DATE OF SERVICE: 10/12/20 SUBJECTIVE: This 85 year old /WHITE M was hospitalized 10/05/20. The patient is steadily declining. Renal function has worsened. Family is present. Refuses oral medication. REVIEW OF SYSTEMS: CONSTITUTIONAL: No night sweats. Lethargy. No fever or chills. HEENT: Eyes: No visual changes. No eye pain. No eye discharge. ENT: No runny nose. No epistaxis. No sinus pain. No odynophagia. No congestion. RESPIRATORY: No cough, no congestion. No hemoptysis. No shortness of breath. Respiratory failure. CARDIOVASCULAR: No angina symptoms. No CHF symptoms. No atypical chest pain for CAD. No palpitations. No orthopnea.. GASTROINTESTINAL: No abdominal pain. No nausea or vomiting. No diarrhea or constipation. No hematemesis. No hematochezia. GENITOURINARY: No urgency. No frequency. No dysuria. No hematuria. No obstructive symptoms. No discharge. No pain. No significant abnormal bleeding. MUSCULOSKELETAL: No musculoskeletal pain; no joint swelling. NEUROLOGICAL: Awake, alert, oriented to time, place and person. No headache. No neck pain. No syncope. No seizures. No dizziness. PSYCHIATRIC: Not anxious. No depression. No suicidal thoughts. No homicidal thoughts. SKIN: No rash. No lesions. No wounds. ENDOCRINE: No unexplained weight loss. No weight gain. HEMATOLOGIC/LYMPHATIC: No anemia. No purpura. No petechiae. No prolonged or excessive bleeding. No palpable lymph nodes. PHYSICAL EXAMINATION: GENERAL: The patient is not alert, lying in bed in no distress. VITAL SIGNS: Temperature 96.8 F, Pulse 110, Respiratory Rate 26, BP 96/64, Pulse Ox 96% HEENT: Head normocephalic, atraumatic. Eyes: Extraocular muscles are intact. Pupils are equal, round and reactive to light and accommodation. Ears: No lesions. Nose appeared normal. Throat: No exudate or erythema. NECK: Supple. No JVD, no carotid bruit. No lymphadenopathy or thyromegaly. LUNGS: Diminished breath sounds. Clear to auscultation. Percussion note normal. Chest symmetrical. HEART: S1, S2, no S3. No murmurs. No cyanosis or clubbing. No ascites. Pulses: Dorsalis pedis and posterior tibial pulses +1 to +2 both sides. ABDOMEN: Soft. Non-tender. Bowel sounds active. No CVA tenderness. No mass felt. EXTREMITIES: No edema. Full range of motion of all extremities, equal. NEUROLOGIC: No focal deficit. Cranial nerves II through XII are grossly intact. No headache. No double vision. SKIN: Not dry. Intact. Turgor-normal. LYMPHATIC: No palpable lymph nodes/no lymphedema. MUSCULOSKELETAL: Normal joints with no swelling. Muscle tone is normal. LAB REVIEW: 10/12/20 04:55 10/12/20 04:55 10/12/20 04:55: Sodium 144.3, Potassium 5.14 H, Chloride 109.8 H, Carbon Dioxide 29.8, Anion Gap 9.84, BUN 79.0 H*, Creatinine 2.06 H D, Estimated GFR (MDRD) 31.00, BUN/Creatinine Ratio 38.34, Glucose 164.2 H, Calcium 9.42, Total Bilirubin 0.43, AST 141.7 H D, ALT 29.1, Alkaline Phosphatase 163.6 H, Total Protein 5.70 L, Albumin 3.04 L, Globulin 2.66, Albumin/Globulin Ratio 1.14 10/12/20 04:55: WBC 16.14 H, RBC 4.43 L, Hgb 13.1 L, Hct 40.7 L, MCV 91.9, MCH 29.6, MCHC 32.2, RDW Coeff of [place] 17.8 H, Plt Count 208, Neutrophils % (Manual) 83.0 H, Lymphocytes % (Manual) 4.0 L, Monocytes % (Manual) 6.0, Metamyelocytes % 3.0 H, Myelocytes % 4.0 H, Anisocytosis Not present ASSESSMENT: Please see below. 1. Respiratory failure with aspirations 2. Renal failure PLAN: 1. Will keep the patient comfortably with Morphine and Ativan Plan and coordination of the patient's care discussed in the presence of Sales Manager [place] and nurse. SCRIBED BY: Anca PLASCENCIAist scribed while in presence of service performed by Dr. Martin/Rehana Garcia APRN on 10/12/20 ([id number])
--- NOTE | 2020-10-12 10:21 | PN ---
DATE OF SERVICE: 10/09/20 SUBJECTIVE: 85-year-old white male hospitalized with shortness of breath and acute bronchitis. The patient has history of chronic lung disease, coronary artery disease. The patient was in acute renal failure from dehydration but he has chronic kidney disease. In any case, the patient was treated with antibiotics, steroids, nebs. Initially he seemed to be doing somewhat better but later on, the patient has been in chronic bronchitis, bilateral wheezing and dry cough. The patient was given slow hydration, IV fluids with not much response. REVIEW OF SYSTEMS: CONSTITUTIONAL: No night sweats. No fatigue, malaise, lethargy. No fever or chills. HEENT: Eyes: No visual changes. No eye pain. No eye discharge. ENT: No runny nose. No epistaxis. No sinus pain. No sore throat. No odynophagia. No congestion. RESPIRATORY: Wheezing, shortness of breath on minimal exertion. More or less constant cough. No hemoptysis. The patient is given Morphine. CARDIOVASCULAR: No angina symptoms. No CHF symptoms. No atypical chest pain for CAD. No palpitations. No PND. No orthopnea. GASTROINTESTINAL: Poor appetite. Poor oral intake. No abdominal pain. No nausea or vomiting. No diarrhea or constipation. No hematemesis. No hematochezia. GENITOURINARY: No urgency. No frequency. No dysuria. No hematuria. No obstructive symptoms. No discharge. No pain. No significant abnormal bleeding. MUSCULOSKELETAL: No musculoskeletal pain; no joint swelling. NEUROLOGICAL: No headache. No neck pain. No syncope. No seizures. No dizziness. PSYCHIATRIC: Not anxious. No depression. No suicidal thoughts. No homicidal thoughts. SKIN: No rash. No lesions. No wounds. ENDOCRINE: No unexplained weight loss. No weight gain. HEMATOLOGIC/LYMPHATIC: No anemia. No purpura. No petechiae. No prolonged or excessive bleeding. No palpable lymph nodes. PHYSICAL EXAMINATION: VITAL SIGNS: Temperature 97, pulse 110, respiratory rate 18, blood pressure 140/77, pulse ox 93% with 2L. HEENT: Head normocephalic, atraumatic. Eyes: Extraocular muscles are intact. Pupils are equal, round and reactive to light and accommodation. Ears: No lesions. Nose appeared normal. Throat: No exudate or erythema. NECK: Supple. No JVD, no carotid bruit. No lymphadenopathy or thyromegaly. LUNGS: Wneezing bilaterally. Percussion note normal. Chest symmetrical. HEART: S1, S2, no S3. Tachycardia. No murmurs. No cyanosis or clubbing. No ascites. Pulses: Dorsalis pedis and posterior tibial pulses +1 to +2 bilaterally. ABDOMEN: Soft. Nontender. Bowel sounds active. No CVA tenderness. No mass felt. EXTREMITIES: Trace edema. Full range of motion of all extremities, equal. NEUROLOGIC: No focal deficit. Cranial nerves II through XII are grossly intact. No headache. No double vision. SKIN: Not dry. Intact. Turgor - normal. LYMPHATIC: No palpable lymph nodes/no lymphedema. MUSCULOSKELETAL: Normal joints with no swelling. Muscle tone is normal. LABS: Hemoglobin 12.9, hematocrit 39, WBC 14,000, normal differential. Creatinine 1.9, BUN 56, potassium 5.1. ASSESSMENT: 1. Acute respiratory failure with severe bronchitis with bilateral pneumonitis likely aspiration. 2. Possibility of left ventricular failure, cor pulmonale. 3. Chronic lung disease. 4. Coronary artery disease. 5. Acute renal failure with some improvement in kidney function. 6. Estimated GFR now is 33 cc/min. PLAN: 1. Continue to give Phenergan with Codeine. 2. Morphine Sulfate every 3 to 4 hr for wheezing, shortness of breath and for panic. 3. Continue Rocephin. 4. Continue steroids. 5. The patient is DNR. CONDITION: Critical. Prognosis: Poor. TIME SPENT: More than 30 minutes. Plan and coordination of the patient's care discussed in the presence of nurse. LILIYA
--- NOTE | 2020-10-12 10:30 | PN ---
DATE OF SERVICE: 10/10/20 SUBJECTIVE: 85-year-old white male hospitalized with acute bronchitis, pneumonitis and CHF. The patient also has history of coronary artery disease. The patient has been in renal failure. She has been given slow IV fluids with not much response. The patient has continued to deteriorate with worsening of respiratory status. The patient has been on comfort measures. The patient has bilateral wheeze with prolonged expiration phase of respiration. Oral intake is practically nothing. VITAL SIGNS: Temperature 97, pulse 110, respiratory rate 18 to 25/min, BP 140/77, pulse ox 93% on 50% Venti mask. Condition is critical. Prognosis is poor. THE PATIENT IS DNR. TIME SPENT: More than 30 minutes. Plan and coordination of the patient's care discussed in the presence of nurse. LILIYA
--- NOTE | 2020-10-12 10:38 | PN ---
DATE OF SERVICE: 10/11/20 SUBJECTIVE: 82-mcim-ceclh male hospitalized with shortness of breath, cough, congestion, exacerbation of COPD with some left ventricular failure. The patient's condition seems to be deteriorating and comfort measure. The patient is on IV Morphine Sulfate 2 hours, 3 to 4 mg with Ativan 2 mg. He is restless. The family is present in the room. The patient is not responding to verbal stimulus, gasping respirations. PHYSICAL EXAMINATION: VITAL SIGNS: Temperature 97.5, pulse 120, respiratory rate 20, blood pressure 140/70, pulse ox 88% with 50% Venti mask. HEENT: Looks pale. Sweating. Head normocephalic, atraumatic. Eyes: Extraocular muscles are intact. Pupils are equal, round and reactive to light and accommodation. Ears: No lesions. Nose appeared normal. Throat: No exudate or erythema. NECK: Supple. No JVD, no carotid bruit. No lymphadenopathy or thyromegaly. LUNGS: Gasping respiration with mild expiratory wheeze. Percussion note normal. Chest symmetrical. HEART: S1, S2, no S3. Tachycardia. No murmurs. No cyanosis or clubbing. No ascites. Pulses: Dorsalis pedis and posterior tibial pulses +1 to +2 bilaterally. ABDOMEN: Protuberant. Soft. Nontender. Bowel sounds active. No CVA tenderness. No mass felt. EXTREMITIES: No edema. Full range of motion of all extremities, equal. NEUROLOGIC: No focal deficit. Cranial nerves II through XII are grossly intact. No headache. No double vision. SKIN: Not dry. Intact. Turgor - normal. LYMPHATIC: No palpable lymph nodes/no lymphedema. MUSCULOSKELETAL: Normal joints with no swelling. Muscle tone is normal. ASSESSMENT: 1. Respiratory failure with gasping respirations. PLAN: 1. Morphine and Ativan. 2. Continue steroids. PROGNOSIS: Poor. CONDITION: Critical. THE PATIENT IS DNR. TIME SPENT: More than 30 minutes. Plan and coordination of the patient's care discussed in the presence of nurse. LILIYA
[2020-10-12] MEDS: CALMOSEPTINE OINTMENT TP SCH ×2 (12:32→22:25)
[2020-10-13 01:45] VITALS: BP 70/42
[2020-10-13] MEDS: ATIVAN IVP PRN ×3 (01:53→08:25)
[2020-10-13] MEDS: MORPHINE 2 MG/ML SYRINGE IVP PRN ×3 (01:53→08:26)
[2020-10-13 05:48] VITALS: TEMP 97.2
[2020-10-13] MEDS: SOLU-CORTEF 250 MG IVP SCH (05:56)
[2020-10-13] MEDS: TRANSDERM-SCOP 1.5 MG PATCH TD SCH (09:08)
[2020-10-13] MEDS: CALMOSEPTINE OINTMENT TP SCH (09:08)
--- NOTE | 2020-10-13 11:19 | PCM.PROG ---
Time of : 10:14 Preliminary Cause of : Natural causes
--- NOTE | 2020-10-14 09:57 | PN ---
DATE OF SERVICE: 10/12/2020 SUBJECTIVE: The patient was seen and examined with the Nurse Practitioner. Condition is still critical. Comfort measures being given, Ativan and Morphine sulfate. The patient's respiratory failure seems to be worsening. The patient is DNR. TIME SPENT: More than 30 minutes. Plan and coordination of the patient's care discussed in the presence of nurse. LILIYA
--- NOTE | 2020-10-14 10:01 | PN ---
DATE OF SERVICE: 10/13/2020 SUBJECTIVE: 85 year old white male with gasping respirations. He is on comfort measures. Ativan to be given 1-2mg every 2 hours along with Morphine Sulfate every 2 hourly. The patient's kidney functions have deteriorated. Oral intake is practically zero. The patient is obtunded, gasping respirations. VITALS: Temperature 97.2, pulse 110, respiratory rate 24, blood pressure 70/42 and pulse ox 89% with 100% non-rebreather. ASSESSMENT: 1. Respiratory failure continued, in fact worsened. 2. Hypertension 3. Renal failure 4. History of coronary artery disease PLAN: 1. Comfort measures The patient is DNR. TIME SPENT: More than 30 minutes. Plan and coordination of the patient's care discussed in the presence of nurse. LILIYA
== END 2020-10-13 13:56 | disposition expired | DRG 194 ==
LOC: LAB 14:02 → MEDSURG A 16:37
PROVIDERS: ADMIT Internal Medicine; ATTEND Internal Medicine